=== PATIENT | female | born 1995 | race Caucasian/White ===

== ENCOUNTER → 2016-11-13 | Outpatient (CLI) | payer BC ==
[~2016-11-13] MED LIST: LEVO1IUD IU; LEVO50TA PO; SENN8.6T15 PO
[2016-11-13 18:26] LABS: THYROID STIMULATING HORMONE < 0.005 uIu/ml (0.300-4.500)
== END | disposition home or self-care (01) ==
LOC: C.LABBFT 14:18
PROVIDERS: ATTEND Internal Medicine Endocrinology, Diabetes & Metabolism
DX: E03.9 Hypothyroidism, unspecified (principal)

== ENCOUNTER → 2017-04-19 | Outpatient (CLI) | payer OTHER ==
[~2017-04-19] MED LIST changes: +SENN1TAB86 PO; -SENN8.6T15 PO
== END | disposition home or self-care (01) ==
LOC: C.LABSPEC 17:38
PROVIDERS: ATTEND Physician Assistant
DX: N89.8 Other specified noninflammatory disorders of vagina (principal)

== ENCOUNTER → 2017-05-01 | Outpatient (CLI) | payer OTHER ==
--- NOTE | 2017-05-01 15:12 | DIAGNOSTIC IMAGING REPORT ---
HEAD WITHOUT CONTRAST (CT) CLINICAL HISTORY: 21 years-old Female presenting with HEADACHE. TECHNIQUE: Multidetector CT imaging of the head was performed without the use of intravenous contrast. IV contrast: None. A dose lowering technique was used consistent with the principles of ALARA (as low as reasonably achievable). COMPARISON: 03/29/2011. CT DOSE (mGy.cm): The estimated cumulative dose is 638.56 mGycm. FINDINGS: [employer] Lead topogram: Unremarkable. Ventricles and sulci normal in size. Brain parenchyma normal in appearance with preserved goodwin-white differentiation. No mass effect or midline shift. No hemorrhage or acute territorial infarct. No extra-axial fluid collection. Paranasal sinuses and mastoid air cells clear. Calvarium intact. IMPRESSION: 1. No acute intracranial abnormality. Electronically signed by: Nathen Alcocer M.D. 05/01/2017 3:10 PM Dictated Date/Time: 05/01/2017 3:08 PM
== END | disposition home or self-care (01) ==
LOC: C.CTS 14:44
PROVIDERS: ATTEND Nurse Practitioner Family
DX: R51 Headache (principal)

== ENCOUNTER → 2017-06-27 | Outpatient (CLI) | payer OTHER | END | disposition home or self-care (01) | LOC: C.PAPS 18:03 | PROVIDERS: ATTEND Obstetrics & Gynecology | DX: Z01.419 Encounter for gynecological examination (general) (routine) without abnormal findings (principal) ==